=== PATIENT | male | born 2000 | race Caucasian/White ===

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

== ENCOUNTER 2019-11-09 12:26 | Emergency (ER) | payer OTHER ==
[~2019-11-09] VITALS: Ht 180.3 cm; Wt 105.7 kg
[2019-11-09 12:26] VITALS: BP 148/78
[2019-11-09 12:58] VITALS: BP 132/78
== END 2019-11-09 12:58 | disposition home or self-care (01) ==
LOC: MED 12:26
DX: R05 Cough (principal); R03.0 Elevated blood-pressure reading, without diagnosis of hypertension
CPT/HCPCS: 99283

== ENCOUNTER 2020-11-26 16:14 | Emergency (ER) | payer OTHER ==
[~2020-11-26] VITALS: Ht 180.3 cm; Wt 145.1 kg
[2020-11-26 16:20] VITALS: BP 151/90
[2020-11-26 18:03] LABS: BASOPHILS # (AUTO) 0.1 K/uL (0.00-0.22); BASOPHILS % (AUTO) 0.7 % (0.0-2.0); EOSINOPHILS # (AUTO) 0.1 K/uL (0-0.4); EOSINOPHILS % (AUTO) 0.6 % (0.0-4.0); HEMATOCRIT 49.1 % (36-52); HEMOGLOBIN 16.5 g/dL (12.0-18.0); LYMPHOCYTES # (AUTO) 2.7 K/uL (2.0-11.5); MEAN CORPUSCULAR HEMOGLOBIN 29 pg (27-31); MEAN CORPUSCULAR HGB CONC 34 g/dL (33-37); MEAN CORPUSCULAR VOLUME 86.2 fL (80-94); MONOCYTES % (AUTO) 6.7 % (1.7-9.3); NEUTROPHILS # (AUTO) 11.1 K/uL (1.8-7.7); PLATELET COUNT (AUTO) 395 K/uL (140-450); RED BLOOD CELL COUNT(AUTO) 5.69 MIL/uL (4.20-6.10); RED CELL DISTRIBUTION WIDTH 13.4 % (11.6-13.7); WHITE BLOOD COUNT (AUTO) 14.9 K/uL (4.8-10.8)
--- NOTE | 2020-11-26 18:05 | NUR ---
SHEMAR VALERIO AT BEDSIDE
[2020-11-26] MEDS ORDERED: FAMOTIDINE 20 MG TAB PO ONE (18:10)
--- NOTE | 2020-11-26 18:12 | NUR ---
20 Y/O MALE C/O EPIGASTIC PAIN THAT BEGAN THIS MORNING. PT RATES PAIN 6/10 THAT IS ACHY/THROBBING AND NONRADIATING. PT DENIES ANY N/V/D. ABD IS FLAT, SOFT, NONTENDER WITH ACTIVE BOWEL SOUNDS X4. PT TOOK SERGIO SELTZER WITH NO RELIEF. PT A/O X4 WITH EVEN AND UNLABORED RESPIRATIONS. PT IN GOWN, LAYING IN BED WITH BED IN LOWEST POSITION, BRAKES LOCKED, X1 SIDERAIL UP. NO PMH NKDA
[2020-11-26 18:39] LABS: ALBUMIN 4.1 g/dL (3.4-5.0); ANION GAP 10.8 (8-16); CARBON DIOXIDE 28.8 mmol/L (21-32); CREATININE 0.9 mg/dL (0.6-1.3); POTASSIUM 4.6 mmol/L (3.5-5.1); TOTAL BILIRUBIN 0.4 mg/dL (0.0-1.0)
--- NOTE | 2020-11-26 18:48 | NUR ---
[facility]
[2020-11-26] MEDS ORDERED: FAMO-92 PO (18:58)
[2020-11-26 19:20] VITALS: BP 151/90
--- NOTE | 2020-11-26 19:21 | NUR ---
Patient discharged with v/s stable. Written and verbal after care instructions given and explained. Patient alert, oriented and verbalized understanding of instructions. Ambulatory with steady gait. All questions addressed prior to discharge. ID band removed. Patient advised to follow up with PMD. Rx of FAMOTIDINE given. Patient educated on indication of medication including possible reaction and side effects. Opportunity to ask questions provided and answered.
== END 2020-11-26 19:21 | disposition home or self-care (01) ==
LOC: MED 16:14
DX: K29.70 Gastritis, unspecified, without bleeding (principal); Z79.899 Other long term (current) drug therapy
CPT/HCPCS: 36415; 80053; 83690; 85025; 99283